=== PATIENT | female | born 1950 | race Caucasian/White ===

== ENCOUNTER 2021-10-29 12:15 | Outpatient (CLI) | payer MEDICARE, OTHER ==
[2021-10-29 13:49] LABS: Hemoglobin 12.9 g/dL (12.0-15.5); Mean Corpuscular HGB CONC 33.6 g/dL (32.0-36.0); Mean Corpuscular Hemoglobin 32.3 pg (27.0-33.0); Platelet Count 363 10x3/uL (150-450); White Blood Cell (WBC) Count 9.7 10x3/uL (3.5-10.5)
[2021-10-29 14:13] LABS: Anion Gap 16 mmol/L (10-20); BUN (Urea Nitrogen) 18 mg/dL (9.8-20.1); Calc. Creatinine Clearance 0 mL/min (70-130); Calcium 9.6 mg/dL (7.8-10.44); Carbon Dioxide 24 mmol/L (23-31); Chloride 104 mmol/L (98-107); Glucose 81 mg/dL (83-110); Potassium 4.5 mmol/L (3.5-5.1); Sodium 139 mmol/L (136-145)
[2021-10-29 22:44] LABS: SARS-CoV-2 PCR by NAA Not Detected (NotDetected)
== END 2021-10-29 12:16 | disposition home or self-care (01) ==
LOC: LABBT 12:15
PROVIDERS: ATTEND Thoracic Surgery (Cardiothoracic Vascular Surgery)
DX: Z01.812 Encounter for preprocedural laboratory examination (principal); Z20.822 Contact with and (suspected) exposure to COVID-19
CPT/HCPCS: 80048; 85027; 86850; 86900; 86901; 86920; U0003; U0005

== ENCOUNTER 2021-10-29 14:00 | Inpatient (IN) | payer MEDICARE, OTHER ==
[2021-11-03] MEDS ORDERED: Fentanyl 100 MCG/2 ML VIAL ONE ×3 (06:52→10:47)
[2021-11-03] MEDS ORDERED: Bupivacaine PF 0.5% 30 ML VIAL ONE (07:23)
[2021-11-03] MEDS ORDERED: EPINEPHrine 1 MG/ML AMP ONE (07:23)
[2021-11-03] MEDS ORDERED: Dexamethasone 4 mg/ml Vial ONE (07:23)
[2021-11-03] MEDS ORDERED: Protamine Sulfate 50 MG/5 ML VIAL ONE (07:23)
[2021-11-03] MEDS ORDERED: Heparin 5,000 UNITS/ML VIAL ONE (07:23)
[2021-11-03] MEDS ORDERED: ceFAZolin 2 GM/DEX 5% 100 ML BAG ONE ×2 (07:37→16:38)
[2021-11-03] MEDS ORDERED: Dexamethasone 20 MG/5 ML VIAL ONE (07:50)
[2021-11-03] MEDS ORDERED: Lidocaine 1% PF 5 ML VIAL ONE (07:50)
[2021-11-03] MEDS ORDERED: PROPOFOL 200 MG/20 ML VIAL ONE (07:50)
[2021-11-03] MEDS ORDERED: Glycopyrrolate 0.2 MG/ML 5 ML SYRINGE ONE (07:50)
[2021-11-03] MEDS ORDERED: Ondansetron PF 4 MG/2 ML Vial ONE (07:50)
[2021-11-03] MEDS ORDERED: Rocuronium Bromide 10 MG/ML (10ML VIAL) ONE (07:50)
[2021-11-03] MEDS ORDERED: Ketorolac Tromethamine 30 MG/ML VIAL ONE (10:31)
[2021-11-03] MEDS ORDERED: Ondansetron PF 4 MG/2 ML Vial IVP PRN (10:41)
[2021-11-03] MEDS ORDERED: Acetaminophen 325 MG TAB PO PRN (10:41)
[2021-11-03] MEDS ORDERED: hydrALAZINE 20 MG/ML VIAL SLOW IVP PRN (10:41)
[2021-11-03] MEDS ORDERED: traMADol HCl 50 MG TAB PO PRN ×2 (10:41)
[2021-11-03] MEDS ORDERED: Fentanyl 100 MCG/2 ML VIAL SLOW IVP PRN (10:41)
[2021-11-03] MEDS: ceFAZolin Sodium/D5W 2 GM in Premix Bag 1 BAG IVPB SCH ×2 (16:47→23:13)
[2021-11-03 20:13] VITALS: BMI 21.5
[2021-11-03] MEDS: D5 1/2 NS w/20 mEq KCL 1,000 ML IV SCH ×2 (20:50→21:14)
[2021-11-03] MEDS ORDERED: rOPINIRole HCl 2 MG TAB PO SCH (21:00)
[2021-11-03] MEDS ORDERED: Zolpidem Tartrate 5 MG TAB PO SCH (21:00)
[2021-11-03] MEDS ORDERED: Atorvastatin Calcium 20 MG TAB PO SCH (21:00)
[2021-11-04] MEDS: D5 1/2 NS w/20 mEq KCL 1,000 ML IV SCH (05:18)
[2021-11-04] MEDS ORDERED: Levothyroxine Sodium 100 MCG TAB PO SCH (06:00)
[2021-11-04] MEDS ORDERED: Clopidogrel Bisulfate 75 MG TAB PO SCH (09:00)
[2021-11-04] MEDS ORDERED: Aspirin Chewable 81 MG TAB PO SCH (09:00)
[2021-11-04] MEDS: ceFAZolin Sodium/D5W 2 GM in Premix Bag 1 BAG IVPB SCH (09:11)
[2021-11-04 11:55] VITALS: BP 139/64; TEMP 98.6
[2021-11-04] MEDS ORDERED: Varenicline Tartrate 0.5 MG TAB PO SCH (12:00)
== END 2021-11-04 14:21 | disposition home or self-care (01) | DRG 254 ==
LOC: SURG A 11-03 06:25 → EDSTATUS 11-03 14:00 → 2NO 11-03 18:25
PROVIDERS: ADMIT Thoracic Surgery (Cardiothoracic Vascular Surgery); ATTEND Thoracic Surgery (Cardiothoracic Vascular Surgery)
PROC: 041K09L Bypass Right Femoral Artery to Popliteal Artery with Autologous Venous Tissue, Open Approach (ICD-10-PCS; principal; 2021-11-03)
PROC: 04CK0ZZ Extirpation of Matter from Right Femoral Artery, Open Approach (ICD-10-PCS; 2021-11-03)
PROC: 06BP0ZZ Excision of Right Saphenous Vein, Open Approach (ICD-10-PCS; 2021-11-03)
DX: T82.868A Thrombosis due to vascular prosthetic devices, implants and grafts, initial encounter (principal); I70.201 Unspecified atherosclerosis of native arteries of extremities, right leg; Z20.822 Contact with and (suspected) exposure to COVID-19; I10 Essential (primary) hypertension; E78.5 Hyperlipidemia, unspecified; E03.9 Hypothyroidism, unspecified; Z91.040 Latex allergy status; G25.81 Restless legs syndrome; Z87.891 Personal history of nicotine dependence; Z90.710 Acquired absence of both cervix and uterus
CPT/HCPCS: C1776; J0171; J1100; J1644; J1885; J2405; J2704; J2720; J3010; J3480; S0020